=== PATIENT | female | born 1960 | race Caucasian/White ===

== ENCOUNTER → 2019-05-12 | Outpatient (CLI) | payer BC ==
[~2019-05-12] MED LIST: REGADENOSON 0.4 MG/5 ML DISP.SYRIN. IV ONE
--- NOTE | 2019-05-12 08:56 | PCVCIMAG ---
APPROVED REPORT Indications Stenosis Risk Factors Hyperlipidemia Doppler Spectral Velocity Analysis PSV / EDVPSV / EDV ECA (R) 65 / 14 cm/sECA (L) 78 / 16 cm/s dICA (R) 77 / 36 cm/sdICA (L) 62 / 24 cm/s Ailyn (R) 75 / 39 cm/smICA (L) 73 / 35 cm/s pICA (R) 42 / 17 cm/spICA (L) 45 / 15 cm/s Bulb (R) 42 / 17 cm/sBulb (L) 59 / 17 cm/s dCCA (R) 91 / 22 cm/sdCCA (L) 93 / 27 cm/s mCCA (R) 109 / 32 cm/smCCA (L) 105 / 31 cm/s Vert (R) 63 / 21 cm/sVert (L) 46 / 17 cm/s ICA/CCA 0.85ICA/CCA 0.78 Basic Measurements Blood Pressure: Pulses: Right Left RightLeft Brachial(Sitting) 106/59imNv933/76mmHgTemporal Real Time B-Mode Imaging Vert. (R)AntegradeVert. (L)Antegrade Findings The right carotid bulb has mild plaque. The right proximal internal carotid artery shows <40% stenosis. The right common carotid artery shows no significant stenosis. The right external carotid artery shows no significant stenosis. The left carotid bulb has minimal plaque. The left proximal internal carotid artery shows no significant stenosis. The left common carotid artery shows no significant stenosis. The left external carotid artery shows no significant stenosis. Conclusion 1. Right internal carotid artery stenosis (<40%) 2. Left internal carotid minimal plaquing without significant stenosis 3. Antegrade vertebral flow
--- NOTE | 2019-05-12 09:10 | PCVCIMAG ---
EXAM: AORTOILIAC DUPLEX INDICATION: Peripheral arterial disease FINDINGS: AORTA: Suprarenal aorta measures maximum diameter of 2.9 cm. There is a fusiform infrarenal aortic aneurysm. The infrarenal aorta measures maximum diameter of 3.0 cm. No aortic stenosis. RIGHT COMMON ILIAC ARTERY: Maximum diameter is 0.8 cm. Complete occlusion proximally. RIGHT EXTERNAL ILIAC ARTERY: No significant stenosis. LEFT COMMON ILIAC ARTERY: Maximum diameter is 0.9 cm. No significant stenosis. LEFT EXTERNAL ILIAC ARTERY: No significant stenosis. IMPRESSION: 3.0 cm infrarenal abdominal aortic aneurysm. Complete occlusion proximal right common iliac artery. LOC:[id number]
--- NOTE | 2019-05-12 13:05 | PCVCIMAG ---
APPROVED REPORT Imaging Protocol: Rest Tc-99m/Stress Tc-99m 1 day Study performed: 05/12/2019 09:29:17 Indication: CAD Patient Location: Out-Patient Stress Nurse: Mikaela Barth RN, PRADEEP Walden Tech:Luigi Montez NMMARIELENAB Ht: 5 ft 3 in Wt: 138 lbs BSA: 1.65 m2 HR: 78 bpm BP: 123/68 mmHg BMI: 24.4 Rhythm: Sinus Rhythm Medical History Medical History: Age, Hyperlipidemia, CVD, COPD, CAD, High CA Score, Smoker Medications: Albuterol, Chantix, Flexeril, Fosamax, Claritin Allergies: No known drug allergies Exercise History: Indeterminate Physical Disabilities: Back Resting Data Rest SPECT myocardial perfusion imaging was performed in supine position 45 minutes following the intravenous injection of 9.7 mCi of Tc-99m Sestamibi. Time of rest injection: 0900 Date: 05/12/2019 Administration Route: IV Administration Site: Right AC Pharmacologic Stress Pharmacologic stress test was performed by injecting Regadenoson 0.4 mg IV push over 10-15 seconds immediately followed by the intravenous injection of 24.5 mCi of Tc-99m Sestamibi. Time of stress injection: 24.5 Date: 05/12/2019 Administration Route: IV Administration Site: Right AC Gated Stress SPECT was performed 45 minutes after stress injection. The images were gated to evaluate regional wall motion and calculate left ventricular ejection fraction. Stress Test Details Stress Test: Pharmacologic stress testing performed using 0.4 mg of regadenoson per 5 mL given IV over 10 seconds. Reason for pharmacologic stress test: Spinal Stenosis. HRMax Heart Rate (APMHR): 160 bpm Resting HR: 78 bpmTarget HR (85% APMHR): 136 bpm Max HR Achieved: 111 bpm % of APMHR: 69 Recovery HR: 94 bpm BP Resting BP: 123/68 mmHg Max BP: 152/75 mmHg Recovery BP: 121/66 mmHg ECG Resting ECG: Sinus Rhythm Stress ECG: Sinus Tachycardia ST Change: None Maximum ST Deviation: 0 mm Arrhythmia: PVC's Recovery ECG: Sinus Rhythm Recovery ST Change: Normal Recovery ST Deviation: 0 mm Recovery Arrhythmia: None Clinical Reason for Termination: Completed protocol Stress Symptoms: Abdominal Pain, Dyspnea Symptoms resolved with caffeine. Stress ECG Conclusion ECG: Non-ischemic Clinical: Non-ischemic Study Quality Study: Good Study Data Post stress, the left ventricular ejection was 76%.. SSS: 0 SRS: 0 SDS: 0 TID = 1.08. Perfusion No evidence of stress induced ischemia or prior myocardial infarction. Wall Motion Normal left ventricular size and function with no regional wall motion abnormalities. Nuclear Conclusion No evidence of stress induced ischemia or prior myocardial infarction. Normal left ventricular size and function with no regional wall motion abnormalities. Post stress, the left ventricular ejection was 76%. No prior study available for comparison. Interpreted by: Pop Weathers MD Electronically Approved: 05/12/2019 12:16:50 <Conclusion> ECG: Non-ischemic Clinical: Non-ischemic
== END ==
LOC: PCVCIMAG 08:04
PROVIDERS: ATTEND Internal Medicine
DX: I65.23 Occlusion and stenosis of bilateral carotid arteries (principal); I25.10 Atherosclerotic heart disease of native coronary artery without angina pectoris; E78.5 Hyperlipidemia, unspecified; R93.1 Abnormal findings on diagnostic imaging of heart and coronary circulation; J43.2 Centrilobular emphysema; I73.9 Peripheral vascular disease, unspecified; I70.0 Atherosclerosis of aorta; F17.210 Nicotine dependence, cigarettes, uncomplicated
CPT/HCPCS: 78452; 93017; 93880; 93978; A9500; J2785